=== PATIENT | female | born 1970 | race Asian ===

== ENCOUNTER 2017-04-23 08:38 | Emergency (ER) | payer OTHER ==
[~2017-04-23] VITALS: Ht 160 cm; Wt 85.0 kg
[~2017-04-23 08:38] MED LIST: AMIT10TA; ASCO500C2; CHOL500045; ENTE0.5T; GLUCOSAMINE 1,1 EACH; HYDR25TA6; LEVO25TA7; OMEG-14; OMEP20CA9; POTA10CA; RABE20TA18; VITA400C42; VITA80004
[2017-04-23] MEDS ORDERED: MECLIZINE CHEWABLE 25 MG TAB ONE (09:11)
[2017-04-23] MEDS ORDERED: ONDANSETRON 2MG/ML, 2ML ONE (09:11)
[2017-04-23] MEDS ORDERED: SODIUM CHLORIDE FLUSH 10ML SYR IVF ONE (09:30)
[2017-04-23] MEDS ORDERED: SODIUM CHLORIDE 0.9% 1,000ML IVBOLUS ONE (09:30)
[2017-04-23] MEDS ORDERED: MECLIZINE CHEWABLE 25 MG TAB PO ONE (09:30)
[2017-04-23] MEDS ORDERED: ONDANSETRON 2MG/ML, 2ML IVPush ONE (09:30)
[2017-04-23] MEDS ORDERED: FLUO20TA25 PO (09:35)
[2017-04-23 09:42] LABS: PATH.CAST-FLAG NOT PRESENT; SPERM-FLAG NOT PRESENT; SRC-FLAG NOT PRESENT; XTAL-FLAG NOT PRESENT; YLC-FLAG NOT PRESENT
[2017-04-23 09:42] LABS: HEMATOCRIT 42.4 % (34.6-47.8); HEMOGLOBIN 14.9 g/dL (11.7-16.4); WHITE BLOOD COUNT 8.9 x10^3/uL (3.4-10)
[2017-04-23 09:54] LABS: BLOOD UREA NITROGEN 10 mg/dL (7-18)
[2017-04-23 10:01] LABS: IS PT STATUS REG ER OR PRE ER? YES
[2017-04-23 10:08] VITALS: BP 119/72
== END 2017-04-23 10:21 | disposition home or self-care (01) ==
LOC: ED 10:10
DX: H81.399 Other peripheral vertigo, unspecified ear (principal); H81.10 Benign paroxysmal vertigo, unspecified ear; I10 Essential (primary) hypertension
CPT/HCPCS: 36415; 71010; 80048; 81001; 82040; 84484; 85025; 93005; 96361; 96374; 99285; J2405; J7030